=== PATIENT | male | born 1965 | race Caucasian/White ===

== ENCOUNTER 2018-01-18 11:15 | Inpatient (IN) | payer MEDICAID ==
[2018-01-18] MEDS ORDERED: LORAZEPAM 2 MG INJ IV (12:15)
[2018-01-18] MEDS ORDERED: DILTIAZEM-D5W 125MG/125ML DRIP 125 ML IV (12:29)
[2018-01-18] MEDS: SOD CHLORIDE 0.9% 1,000 ML IV (12:35)
[2018-01-18] MEDS: DILTIAZEM 25 MG INJ IV (12:49)
[2018-01-18] MEDS: DILTIAZEM 125 MG in DEXTROSE 5% 100 ML IVPB ×2 (12:51→19:59)
[2018-01-18 12:53] LABS: ADD MAN DIFF? NO
[2018-01-18 12:57] LABS: BASOPHIL # 0.1 10^3/ul (0.0-0.1); EOSINOPHILS # 0.2 10^3/ul (0.0-0.5); EOSINOPHILS % 3.6 % (0.0-7.0); HEMATOCRIT 51.4 % (42.0-52.0); HEMOGLOBIN 17.5 g/dl (14.0-18.0); LYMPHOCYTES # 1.8 10^3/ul (0.8-2.9); LYMPHOCYTES % 30.6 % (15.0-51.0); MEAN CORPUSCULAR HEMOGLOBIN 32.1 pg (29.0-33.0); MEAN CORPUSCULAR VOLUME 94.3 fl (82.0-101.0); MEAN PLATELET VOLUME 10.2 fl (7.4-10.4); MONOCYTE # 0.5 10^3/ul (0.3-0.9); MONOCYTES % 8.5 % (0.0-11.0); NEUTROPHIL # 3.3 10^3/ul (1.6-7.5); PLATELET COUNT 250 10^3/UL (140-415); RED BLOOD COUNT 5.45 10^6/ul (4.70-6.10); RED CELL DISTRIBUTION WIDTH 13.7 % (11.5-14.5)
[2018-01-18 12:57] LABS: WHITE BLOOD COUNT 5.9 10^3/ul (4.8-10.8)
[2018-01-18 13:04] LABS: ADD UMIC NO; UR ASCORBIC ACID NEGATIVE (NEGATIVE); UR BILIRUBIN (Dip) NEGATIVE (NEGATIVE); UR BLOOD (Dip) NEGATIVE (NEGATIVE); UR CLARITY CLEAR (CLEAR); UR COLOR COLORLESS (YELLOW); UR GLUCOSE (Dip) NEGATIVE (NEGATIVE); UR KETONES (Dip) NEGATIVE (NEGATIVE); UR LEUKOCYTE ESTERASE (Dip) NEGATIVE Leu/ul (NEGATIVE); UR NITRITE (Dip) NEGATIVE (NEGATIVE); UR SPECIFIC GRAVITY (Dip) 1.003 (1.003-1.030); UR TOTAL PROTEIN (Dip) NEGATIVE (NEGATIVE); UR UROBILINOGEN (Dip) NEGATIVE (NEGATIVE)
[2018-01-18 13:14] LABS: ALANINE AMINOTRANSFERASE 109 IU/L (13-69); ALBUMIN 4.8 g/dl (3.3-4.9); ALBUMIN/GLOBULIN RATIO 1.29; ALKALINE PHOSPHATASE 95 IU/L (42-121); ANION GAP 14 (8-16); ASPARTATE AMINO TRANSFERASE 82 IU/L (15-46); BILIRUBIN,INDIRECT 0.9 mg/dl (0-1.1); BILIRUBIN,TOTAL 0.9 mg/dl (0.2-1.3); BLOOD UREA NITROGEN 11 mg/dl (7-20); CALCIUM 9.6 mg/dl (8.4-10.2); CARBON DIOXIDE 27 mmol/L (21-31); CHLORIDE 108 mmol/L (97-110); CREATINE KINASE 696 IU/L (23-200); CREATININE 0.91 mg/dl (0.61-1.24); GLUCOSE 101 mg/dl (70-220); POTASSIUM 4.3 mmol/L (3.5-5.1); SODIUM 145 mmol/L (135-144); TOTAL PROTEIN 8.5 g/dl (6.1-8.1)
[2018-01-18 13:25] LABS: INR 0.98; PARTIAL THROMBOPLASTIN TIME 30.3 Sec (25.0-35.0); PROTIME 13.1 Sec (11.9-14.9)
[2018-01-18 13:27] LABS: B-TYPE NATRIURETIC PEPTIDE 404 PG/ML (0-125); CK INDEX 0.4
[2018-01-18 13:28] LABS: CK-MB 2.63 ng/ml (0.0-2.4); TROPONIN-I < 0.012 ng/ml (0.00-0.12)
[2018-01-18 13:32] LABS: FREE THYROXINE INDEX (Calc) 2.59 ug/ml (0.65-3.89); T3 UPTAKE 27.9 % (23.5-40.5); T4 (THYROXINE) 9.3 ug/dl (5.5-11.0)
[2018-01-18] MEDS: LORAZEPAM 2 MG INJ IV (13:57)
[2018-01-18] MEDS ORDERED: HYDROCODONE/APAP (5/325) TAB PO ×2 (14:00)
[2018-01-18] MEDS ORDERED: BISACODYL 10 MG SUPP PR (14:00)
[2018-01-18] MEDS ORDERED: morphine 2 MG INJ IV (14:00)
[2018-01-18] MEDS ORDERED: ACETAMINOPHEN 325 MG TAB PO (14:00)
[2018-01-18] MEDS ORDERED: DOCUSATE SODIUM 100 MG CAP PO (14:00)
[2018-01-18] MEDS ORDERED: MAGNESIUM HYDROXIDE 30ML CUP PO (14:00)
[2018-01-18] MEDS ORDERED: ACETAMINOPHEN 650 MG SUPP PR (14:00)
[2018-01-18] MEDS ORDERED: NACL 0.9% 3 ML SYG IV (14:00)
[2018-01-18] MEDS ORDERED: ONDANSETRON 4 MG INJ IV (14:00)
[2018-01-18] MEDS: AMIODARONE 200 MG TAB PO ×2 (15:33→20:13)
[2018-01-18] MEDS: ENOXAPARIN 80 MG/0.8 ML SYG SC (15:34)
[2018-01-18] MEDS: hydrOXYzine HCL 25 MG TAB PO (20:13)
[2018-01-19] MEDS: ENOXAPARIN 80 MG/0.8 ML SYG SC ×2 (01:00→08:12)
[2018-01-19] MEDS: PANTOPRAZOLE 40 MG INJ IV (05:41)
[2018-01-19 06:19] LABS: ADD MAN DIFF? NO
[2018-01-19 06:31] LABS: WHITE BLOOD COUNT 5.7 10^3/ul (4.8-10.8)
[2018-01-19 06:31] LABS: BASOPHIL # 0.1 10^3/ul (0.0-0.1); BASOPHILS % 1.1 % (0.0-2.0); EOSINOPHILS # 0.3 10^3/ul (0.0-0.5); EOSINOPHILS % 5.5 % (0.0-7.0); HEMATOCRIT 47.1 % (42.0-52.0); HEMOGLOBIN 16.1 g/dl (14.0-18.0); LYMPHOCYTES # 1.8 10^3/ul (0.8-2.9); LYMPHOCYTES % 31.8 % (15.0-51.0); MEAN CORPUSCULAR HEMOGLOBIN 32.3 pg (29.0-33.0); MEAN CORPUSCULAR HGB CONC 34.2 g/dl (32.0-37.0); MEAN CORPUSCULAR VOLUME 94.6 fl (82.0-101.0); MEAN PLATELET VOLUME 10.5 fl (7.4-10.4); MONOCYTE # 0.5 10^3/ul (0.3-0.9); MONOCYTES % 8.8 % (0.0-11.0); NEUTROPHILS % 52.6 % (39.0-77.0); PLATELET COUNT 225 10^3/UL (140-415); RED BLOOD COUNT 4.98 10^6/ul (4.70-6.10); RED CELL DISTRIBUTION WIDTH 13.6 % (11.5-14.5)
[2018-01-19 06:46] LABS: HEMOGLOBIN A1C 4.9 % (0-5.9)
[2018-01-19 07:02] LABS: ALANINE AMINOTRANSFERASE 95 IU/L (13-69); ALBUMIN 3.5 g/dl (3.3-4.9); ALKALINE PHOSPHATASE 65 IU/L (42-121); ANION GAP 12 (8-16); ASPARTATE AMINO TRANSFERASE 64 IU/L (15-46); BLOOD UREA NITROGEN 14 mg/dl (7-20); CALCIUM 9.1 mg/dl (8.4-10.2); CARBON DIOXIDE 30 mmol/L (21-31); CHLORIDE 108 mmol/L (97-110); CHOL/HDL RATIO 3.7 RATIO; CHOLESTEROL 197 mg/dl (100-200); CREATININE 1.01 mg/dl (0.61-1.24); GLUCOSE 98 mg/dl (70-220); HDL CHOLESTEROL 52 mg/dl (28-71); LDL CHOLESTEROL,CALCULATED 126 mg/dl; MAGNESIUM 2.1 mg/dl (1.7-2.5); PHOSPHORUS 3.6 mg/dl (2.5-4.9); POTASSIUM 4.5 mmol/L (3.5-5.1); SODIUM 145 mmol/L (135-144); TOTAL PROTEIN 6.4 g/dl (6.1-8.1); TRIGLYCERIDES 93 mg/dl (0-149)
[2018-01-19 07:12] LABS: FREE THYROXINE INDEX (Calc) 2.76 ug/ml (0.65-3.89); T3 UPTAKE 33.3 % (23.5-40.5); T4 (THYROXINE) 8.3 ug/dl (5.5-11.0)
[2018-01-19] MEDS: SERTRALINE 50 MG TAB PO (08:05)
[2018-01-19] MEDS: AMIODARONE 200 MG TAB PO ×2 (09:00→12:47)
== END 2018-01-19 17:45 | disposition home or self-care (01) | DRG 310 ==
LOC: E/R 11:15 → TEL 13:58
DX: I48.0 Paroxysmal atrial fibrillation (principal); I10 Essential (primary) hypertension; F41.9 Anxiety disorder, unspecified; F32.9 Major depressive disorder, single episode, unspecified; E78.5 Hyperlipidemia, unspecified; J45.909 Unspecified asthma, uncomplicated
CPT/HCPCS: 71045; 80053; 80061; 81003; 82550; 82553; 83036; 83735; 83880; 84100; 84436; 84443; 84479; 84484; 85025; 85610; 85730; 93005; 93306; 96361; 96365; 96366; 96372; 96375; 99291-25

== ENCOUNTER 2018-01-20 13:16 | Emergency (ER) | payer SELFPAY | END 2018-01-20 16:38 | disposition left against medical advice (07) | LOC: E/R 13:16 | DX: Z53.21 Procedure and treatment not carried out due to patient leaving prior to being seen by health care provider (principal) | CPT/HCPCS: 93005 ==